=== PATIENT | female | born 1970 | race Caucasian/White ===

== ENCOUNTER 2021-04-25 16:54 | Emergency (ER) | payer OTHER ==
[2021-04-25 19:18] LABS: HEMOGLOBIN 13.4 gm/dl (12.3-15.3); RED BLOOD COUNT 4.29 M/UL (4.00-5.10); WHITE BLOOD COUNT 9.4 K/UL (4.5-11.0)
[2021-04-25 19:46] LABS: BUN/CREATININE RATIO 17 (0-10)
[2021-04-25] MEDS ORDERED: CELEBREX100 MG PO (20:39)
== END 2021-04-25 21:30 | disposition home or self-care (01) ==
LOC: ER1 16:54
PROVIDERS: Physician Assistant Medical
DX: M25.562 Pain in left knee (principal); M25.561 Pain in right knee
CPT/HCPCS: 73560; 80053; 85025; 85652; 86140; 99283; J1885

== ENCOUNTER → 2021-12-07 | Outpatient (CLI) | payer OTHER ==
[~2021-12-07] MED LIST: CELEBREX100 MG PO
== END ==
LOC: HEART 5 15:30
DX: R55 Syncope and collapse (principal)